=== PATIENT | female | born 1965 | race Caucasian/White ===

== ENCOUNTER → 2016-10-01 | Outpatient (CLI) | payer BC ==
[~2016-10-01] MED LIST: MELO15TA10 PO; METO25TA3 PO; SERT-234 PO; SIMV20TA2 PO
[2016-10-01 13:33] LABS: ALKALINE PHOSPHATASE 81 U/L (45-117); ALT/SGPT 40 U/L (12-78); AST/SGOT 21 U/L (15-37); BLOOD UREA NITROGEN 13 mg/dl (7-18); BUN/CREATININE RATIO 17.4 (10-20); CALCIUM 8.6 mg/dl (8.5-10.1); CARBON DIOXIDE 26 mmol/L (21-32); CHLORIDE 107 mmol/L (98-107); CREATININE 0.75 mg/dl (0.60-1.20); GLUCOSE 96 mg/dl (70-99); HDL CHOLESTEROL 44 mg/dl; POTASSIUM 4.2 mmol/L (3.5-5.1); SODIUM 139 mmol/L (136-145)
[2016-10-01 13:46] LABS: ALB/GLOB RATIO 1.1 (0.9-2); CHOLESTEROL 215 mg/dl (0-200); CHOLESTEROL/HDL RATIO 4.9; LDL CHOLESTEROL CALCULATED 119 mg/dl; TRIGLYCERIDES 260 mg/dl (0-150); VERY LOW DENSITY LIPOPROT CALC 52 mg/dl
== END | disposition home or self-care (01) ==
LOC: C.LABPVFM 08:35
PROVIDERS: ATTEND Family Medicine
DX: I49.3 Ventricular premature depolarization (principal); F32.9 Major depressive disorder, single episode, unspecified; E78.5 Hyperlipidemia, unspecified

== ENCOUNTER → 2017-05-12 | Outpatient (CLI) | payer BC ==
--- NOTE | 2017-05-12 15:17 | MAMMOGRAPHY REPORT ---
BILATERAL DIGITAL SCREENING MAMMOGRAM TOMOSYNTHESIS WITH CAD: 05/12/2017 CLINICAL HISTORY: Routine screening. Patient has no complaints. TECHNIQUE: Breast tomosynthesis in addition to standard 2D mammography was performed. Current study was also evaluated with a Computer Aided Detection (CAD) system. COMPARISON: Comparison is made to exams dated: 02/21/2015 mammogram, 04/02/2016 mammogram, 01/23/2014 mammogram, 11/18/2012 mammogram, 10/26/2011 mammogram, and 08/08/2010 mammogram - [facility] enter. BREAST COMPOSITION: There are scattered areas of fibroglandular density in both breasts. FINDINGS: The parenchymal pattern is unchanged. No developing mass, architectural distortion or clus ter of suspicious microcalcifications is seen in either breast. IMPRESSION: ACR BI-RADS CATEGORY 2: BENIGN There is no mammographic evidence of malignancy. A 1 year screening mammogram is recommended. The pa tient will receive written notification of the results. Approximately 10% of breast cancers are not detected with mammography. A negative mammographic report should not delay biopsy if a clinically suggestive mass is present. Nancy Bolton M.D. ay/:05/12/2017 09:51:34 Internal Controls Manager: Cee SINGH(Jhon)(Oumou), [facility] letter sent: Normal 1/2 BI-RADS Code: ACR BI-RADS Category 2: Benign
== END | disposition home or self-care (01) ==
LOC: C.MAMM 08:37
PROVIDERS: ATTEND Obstetrics & Gynecology
DX: Z12.31 Encounter for screening mammogram for malignant neoplasm of breast (principal)

== ENCOUNTER 2018-08-16 06:22 | Inpatient (IN) ==
--- NOTE | 2018-07-07 10:16 | PAT Medication Instructions ---
Medication Instructions Date of Service July 07, 2018 Home Medications atorvastatin 20 mg PO QAM diclofenac sodium 75 mg PO BID metoprolol succinate 12.5 mg PO QAM sertraline 100 mg PO QAM ASK your surgeon for instructions diclofenac sodium 75 mg PO BID Take morning of surgery With a small sip of water, OTHERWISE NOTHING TO EAT OR DRINK AFTER MIDNIGHT: atorvastatin 20 mg PO QAM metoprolol succinate 12.5 mg PO QAM sertraline 100 mg PO QAM Other Notes If you have any questions please call us at [phone] or [phone] or [phone] or [phone]
--- NOTE | 2018-07-15 14:05 | Anesthesiology Consultation ---
Date of Service July 15, 2018 Assessment & Plan (1) Encounter for pre-operative examination: Chart Review Chart Review: Acceptable Risk for Surgery and Patient seen in Pre Admission Testing Teaching & Discussion Pre-Anesthesia Teaching/Discussion Notes: Instructed NPO after midnight before surgery,except medications with 15 cc of water. Medication instructions provided according to the PAT guidelines. History Surgery Operation Date: 08/16/18 08:50 Proposed Procedures p Right Total Hip Replacement - Loy Negrete MD Height/Weight Height: 5 ft 6.5 in Weight: 100 kg Allergies Allergy/AdvReac Type Severity Reaction Status Date / Time adhesive Allergy Unknown SKIN Verified 07/04/18 11:59 IRRITATION pseudoephedrine AdvReac Unknown PALPITATION Verified 07/15/18 14:15 S Medications Home Medications Medication Instructions Recorded Confirmed Last Taken atorvastatin 20 mg PO QAM 07/04/18 07/04/18 Unknown diclofenac sodium 75 mg PO BID 07/04/18 07/04/18 Unknown metoprolol succinate 12.5 mg PO QAM 07/04/18 07/04/18 Unknown sertraline 100 mg PO QAM 07/04/18 07/04/18 Unknown Past Medical History Medical History Anxiety History of palpitations ON METOPROLOL Hyperlipidemia Obesity Osteoarthritis Sleep apnea CPAP Past Surgical History Surgical History History of cholecystectomy History of tooth extraction WISDOM TEETH History of total abdominal hysterectomy and bilateral salpingo-oophorectomy Hx of colonoscopy Past Anesthesia History No Hx of Anesthesia Complications and No Family Hx of Anesthesia Complications History of PONV No Motion Sickness Screening History of Motion Sickness: No Social History Smoking Status: Former smoker Do You Dip or Chew Tobacco: No Smoking End Date: QUIT SEVERAL YEARS AGO Hx Alcohol Use: No Hx Substance Use: No substance use type: does not use Exercise / Class Metabolic Activity II 4-5 Yardwork/Stairs/Walk up hill Review of Systems History of palpitations- on metoprolol. Patient denies chest pain, shortness of breath, dyspnea on exertion, joint pain, reflux, cough, wheezing, palpitations. Physical Exam Full neck and c-spine range of motion. Full TMJ range of motion. TMD 2.5 finger breaths Mallampati Score 3 Dentition: intact, porcelain tooth on upper right; several crowns on sides/ molars Lungs: clear throughout to auscultation Cardiac: regular rate and rhythm, no murmurs noted Spine: normal Carotid arteries: negative bruit Extremities: no edema Testing Electrocardiogram Date: 07/15/18 NSR at 69bpm. NS STA. Chest X-Ray Date: 07/15/18 Findings: + NAD Laboratory Results 07/15/18 14:28 07/15/18 14:28 Blood Type A Positive 07/15/18 14:28 Antibody Screen NEGATIVE 07/15/18 14:28 PT 10.6 Seconds (9.0-12.0) 07/15/18 14:28 INR 1.1 (0.9-1.1) 07/15/18 14:28 APTT 30.5 Seconds (21.0-31.0) 07/15/18 14:28
--- NOTE | 2018-07-15 14:06 | PAT Medication Instructions ---
Medication Instructions Date of Service July 15, 2018 Home Medications atorvastatin 20 mg PO QAM diclofenac sodium 75 mg PO BID metoprolol succinate 12.5 mg PO QAM sertraline 100 mg PO QAM ASK your surgeon for instructions diclofenac sodium 75 mg PO BID Take morning of surgery With a small sip of water, OTHERWISE NOTHING TO EAT OR DRINK AFTER MIDNIGHT: atorvastatin 20 mg PO QAM metoprolol succinate 12.5 mg PO QAM sertraline 100 mg PO QAM Other Notes If you have any questions please call us at [phone] or [phone] or [phone] or [phone]
--- NOTE | 2018-07-15 15:06 | XRay Report ---
XR chest Pre-admission PA/Lat CLINICAL HISTORY: 52 years-old Female presenting with preoperative assessment. TECHNIQUE: PA and lateral views of the chest were obtained. COMPARISON: None. FINDINGS: Cardiomediastinal silhouette normal. Lungs and pleural spaces clear. Osseous structures normal. Nanda cystectomy clips noted. IMPRESSION: 1. No acute cardiopulmonary disease. Electronically signed by: Tom Pendleton M.D. 07/15/2018 3:05 PM
[2018-07-15 16:14] LABS: Basophils # (auto) 0.04 K/uL (0-0.2); Basophils % (auto) 0.5 %; Eosinophils % (auto) 1.2 %; Hematocrit (blood only) 39.3 % (37-47); Hemoglobin 13.1 g/dL (12.0-16.0); Immature Granulocytes # (auto) 0.01 K/uL (0.00-0.02); Immature Granulocytes % (auto) 0.1 %; Lymphocytes # (auto) 2.87 K/uL (1.2-3.4); Lymphocytes % (auto) 33.3 %; Mean Corpuscular Hgb Conc 33.3 g/dL (32-36); Mean Platelet Volume 12.2 fL (7.4-10.4); Monocytes # (auto) 0.34 K/uL (0.11-0.59); Monocytes % (auto) 3.9 %; Neutrophils # (auto) 5.25 K/uL (1.4-6.5); Platelet Count 241 K/uL (130-400); RDW Coefficient of Variation 12.9 % (11.5-14.5); RDW Standard Deviation 46.1 fL (36.4-46.3); Red Blood Count 4.05 M/uL (4.2-5.4); White Blood Count 8.61 K/uL (4.8-10.8)
[2018-07-15 16:25] LABS: INR 1.1 (0.9-1.1); Partial Thromboplastin Ratio 1.2; Partial Thromboplastin Time 30.5 Seconds (21.0-31.0); Prothrombin Time 10.6 Seconds (9.0-12.0)
[2018-07-15 16:26] LABS: BUN Creatinine Ratio 18.5 (10-20); Calcium 8.3 mg/dl (8.5-10.1); Creatinine Clr Calc Pharmacy 91.1 ml/min; Est GFR (Non-African American) 77.7; Potassium 3.7 mmol/L (3.5-5.1)
--- NOTE | 2018-08-01 08:17 | History and Physical Report ---
DATE OF ADMISSION: 08/16/2018 CHIEF COMPLAINT: Right hip pain. HISTORY OF PRESENT ILLNESS: A 52-year-old female who is referred for surgical treatment of her right hip. She has a several-year history of increasing right hip pain, groin pain. She describes it has gotten worse. It has gotten markedly worse over the past 6 months. She has tried different anti-inflammatories, which help for a short period of time and then kind of run their course and become less effective. She is currently taking diclofenac with pretty minimal relief. She has got chronic pain. It hurts her all the time. The more she walks, the more it hurts. She limps all day long. She would like to have her hip fixed. PAST MEDICAL HISTORY: 1. Elevated cholesterol. 2. Depression. PAST SURGICAL HISTORY: Include: 1. Hysterectomy. 2. Cholecystectomy. ALLERGIES: None. CURRENT MEDICINES: 1. Sertraline. 2. Metoprolol 12.5 mg. 3. Atorvastatin. 4. Diclofenac. SOCIAL HISTORY: A 52-year-old female patient, is . Rare alcohol intake. 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 FAMILY HISTORY: Significant for heart disease, diabetes, melanoma, lung cancer. REVIEW OF SYSTEMS: Negative for diabetes, neurologic problems, vascular problems or bleeding disorders. No chest pain or shortness of breath. No DVT or PE. PHYSICAL EXAMINATION: GENERAL: Reveals a healthy, pleasant middle-aged female. Looks to be in reasonably good health. HEENT: Benign. NECK: Supple. No lymphadenopathy. LUNGS: Clear to auscultation. HEART: Regular rate and rhythm. ABDOMEN: Soft, nontender, nondistended. EXTREMITIES: Grossly neurovascularly intact except as follows: Examination of the right hip and leg reveals patient walks with a significant limp. Leg lengths clinically appear equal. She has significant pain with hip motion. She can internally rotate to -5. Negative straight leg raise. No knee effusion. She is neurologically intact. X-RAYS: X-rays of the right hip were reviewed, show advanced right hip DJD. She has complete loss of her hip joint space with some degree of flattening of the femoral head. She has subchondral sclerosis. It has gotten significantly worse over the past 2 months. ASSESSMENT: A 52-year-old female with advanced right hip degenerative joint disease. She has failed conservative care and would like to have her right hip replaced. PLAN: We will take her to the operating room and do right total hip replacement. The risks and benefits of the procedure were explained to the patient and include but not limited to DVT, PE, , infection, neurological injury, vascular injury, bleeding problem, pain, limited range of motion, stiffness, failure to relieve her symptoms, incomplete relief of symptoms, need for further surgery in the future, fracture, leg length inequality, nerve palsy, etc. The patient understands and desires to proceed. Informed consent was obtained. As far as discharge plans, she is planning to be discharged to home using [facility] home health program. We did talk to her about taking her atenolol/metoprolol on the morning of surgery and holding the diclofenac 10 days preop.
[~2018-08-16 06:22] MED LIST changes: +ACETAMINOPHEN 500 MG TAB PO SCH; +CEFAZOLIN 2000MG 2,000 MG/15 ML SYR IV SCH; +FAMOTIDINE 20 MG TAB PO SCH; +GABAPENTIN 300 MG x 3 PO SCH; +LR 500ML BOLUS, THEN 15ML/HR IV SCH; +LR 60ML/HR IV SCH; -MELO15TA10 PO; -METO25TA3 PO; +METOCLOPRAMIDE HCL 10 MG TABLET PO SCH; +SCOPOLAMINE 1.5 MG TDSY TD SCH; -SERT-234 PO; -SIMV20TA2 PO; +TRANEXAMIC ACID 1,000 MG **IV Pre-op IV SCH
[2018-08-16] MEDS ORDERED: BUPIVACAINE 0.5 % 5 MG/1 ML PF 10ML VIAL ONE (06:37)
--- NOTE | 2018-08-16 06:55 | History & Physical Bridge Note ---
Date of Service August 16, 2018 History & Physical Bridge Note I have examined the patient, reviewed the History & Physical and in the interval since the performance of the History & Physical I have noted the following changes of clinical significance: no changes noted
[2018-08-16] MEDS ORDERED: MoRPHine SULFATE PF 1 MG/ML 10 ML AMP/VIAL ONE (07:45)
[2018-08-16] MEDS ORDERED: MIDAZOLAM HCL 1 MG/ML 2ML VIAL ONE ×2 (07:45→09:53)
[2018-08-16] MEDS ORDERED: PROPOFOL IV EMULSION 10 MG/ML 20 ML VIAL IV ONE (08:50)
[2018-08-16] MEDS ORDERED: LIDOCAINE HCL 2% 2 ML VIAL/AMP(20MG/ML) INFIL ONE (08:50)
[2018-08-16] MEDS ORDERED: BACITRACIN INJ 50,000 UNIT VIAL ONE (09:13)
[2018-08-16] MEDS ORDERED: BUPIVACAINE/EPINEPHRINE 0.5% MPF 1:200,000 30 ML VIAL ONE (09:13)
[2018-08-16] MEDS ORDERED: LACTATED RINGER'S 500 ML IV PRN (09:23)
[2018-08-16] MEDS ORDERED: NALBUPHINE HCL INJ 10 MG/ML AMP IV PRN (09:23)
[2018-08-16] MEDS ORDERED: MoRPHine SULFATE 2 MG/ML CARP IV PRN (09:23)
[2018-08-16] MEDS ORDERED: NALOXONE HCL 0.08 MG in SYRINGE 1.8 ML IV PRN (09:23)
[2018-08-16] MEDS ORDERED: NALOXONE HCL 1 MG in SODIUM CHLORIDE 0.9% 1000ML 1,000 ML IV PRN (09:23)
[2018-08-16] MEDS ORDERED: NALOXONE HCL 0.4 MG/1 ML VIAL/CARP IV PRN ×2 (09:23→11:58)
[2018-08-16] MEDS ORDERED: ONDANSETRON INJ 2 MG/ML 2 ML VIAL IV PRN (09:23)
[2018-08-16] MEDS ORDERED: MoRPHine SULFATE PF 1 MG/ML 10 ML AMP/VIAL INT SPINAL ONE (09:23)
[2018-08-16] MEDS ORDERED: MEPERIDINE HCL 25 MG/ML CARP IV PRN (09:23)
[2018-08-16] MEDS ORDERED: NO NARCOTICS OR SEDATIVES SCH (09:30)
[2018-08-16] MEDS ORDERED: SODIUM CHLORIDE 0.9% 1000ML 1,000 ML IV SCH (09:30)
[2018-08-16] MEDS ORDERED: DC INTRASPINAL MORPHINE SCH (09:30)
--- NOTE | 2018-08-16 10:59 | Post Operative Brief Note ---
Immediate Post Op Note v1 Date of Surgery August 16, 2018 Pre & Post Diagnosis Operation Date: 08/16/18 08:50 Pre-Op Diagnosis: Right Hip Advanced Degenerative Joint Disease Post-Op Diagnosis: Right Hip Advanced Degenerative Joint Disease Procedure Operation Date: 08/16/18 08:50 Actual Procedures p Right Total Hip Arthroplasty--Uncemented(Right) - Loy Negrete MD Surgeon Loy Negrete MD Camp Attendant Bin, PAC Estimated Blood Loss 300 Findings Consistent with Post-Op Diagnosis Fluids 1300 cc Specimens Right Femoral Head Drains Gordon Catheter (A 16 Azeri gordon catheter was inserted by KACIE Head, without difficulty, clear yellow urine obtained, output to be monitored by Anesthesia.) Anesthesia Type Spinal MAC Complications none Disposition Accompanied Patient To Recovery: Yes Disposition: Recovery Room
--- NOTE | 2018-08-16 11:56 | XRay Report ---
XR hip 1V RT w pelvis CLINICAL HISTORY: IN PACU - A/P PELVIS and LATERAL HIP COMPARISON: Right hip radiographs August 28, 2015. FINDINGS: Alignment of the total right hip arthroplasty is anatomic. There is no fracture or unexpec maria fernanda radiopaque foreign body. Skin shelli and acetabular screws are noted. IMPRESSION: Expected findings following total right hip arthroplasty. Electronically signed by: Segundo Echevarria M.D. 08/16/2018 11:54 AM
[2018-08-16] MEDS ORDERED: BISACODYL 10 MG SUPP PR PRN (11:58)
[2018-08-16] MEDS ORDERED: MAGNESIUM HYDROXIDE SUSP 30 ML UDC PO PRN (11:58)
[2018-08-16] MEDS ORDERED: ALUMINUM/MAGNESIUM SUSP 30 ML UDC PO PRN (11:58)
--- NOTE | 2018-08-16 11:58 | Anesthesiology Progress Note ---
Date of Service August 16, 2018 Anesthesia Post Procedure Vital Signs Vital Signs: Temp Pulse Pulse Resp BP Pulse Ox 08/16/18 11:35 36.5 C 58 L 16 106/63 95 08/16/18 11:25 56 L 17 116/40 L 98 08/16/18 11:15 68 16 91/44 L 98 08/16/18 11:05 66 17 101/56 L 98 08/16/18 10:59 36.9 C 61 16 109/60 95 08/16/18 06:55 36.8 C 52 L 20 131/83 95 Pain Intensity Right Hip: Pain Intensity: 0 Notes Mental Status: alert / awake / arousable Patient Amnestic to Procedure: Yes Nausea / Vomiting: adequately controlled Pain: adequately controlled Airway Patency, RR, SpO2: stable & adequate BP & HR: stable & adequate Hydration State: stable & adequate Neuraxial Anesthesia: was administered and sensory block is resolving Anesthetic Complications: no major complications apparent and Pt Satisfied with anesthetic care
[2018-08-16] MEDS: ACETAMINOPHEN 500 MG TAB PO SCH ×2 (13:45→20:46)
[2018-08-16] MEDS: SODIUM CHLORIDE 0.9% 1000ML 1,000 ML IV SCH ×2 (13:45→23:14)
[2018-08-16] MEDS: DiphenhydrAMINE HCL 50 MG/ML VIAL IV PRN ×2 (13:48→20:46)
[2018-08-16] MEDS: CHECK SCOPOLAMINE PATCH PLACEMENT SCH ×2 (14:58→23:15)
[2018-08-16] MEDS ORDERED: TRANEXAMIC ACID 1,000 MG in 0.9 % SODIUM CHLORIDE 100 ML IV SCH (17:00)
[2018-08-16] MEDS: FERROUS GLUCONATE 324 MG TAB PO SCH (18:10)
[2018-08-16] MEDS: ASCORBIC ACID 500 MG TAB PO SCH (18:10)
[2018-08-16] MEDS: CEFAZOLIN 2000MG 2,000 MG/15 ML SYR IV SCH (18:43)
[2018-08-16] MEDS: ASPIRIN 81 MG ECTAB PO SCH (20:00)
[2018-08-16] MEDS: DOCUSATE SODIUM 100 MG CAP PO SCH (20:00)
[2018-08-16] MEDS ORDERED: SENNA 8.6 MG TAB PO SCH (21:00)
--- NOTE | 2018-08-17 01:32 | Operative Report ---
DATE OF OPERATION: 08/16/2018 SURGEON: Loy Negrete MD COMMISSIONS SPECIALIST: KACIE Hall PREOPERATIVE DIAGNOSIS: Right hip degenerative joint disease. POSTOPERATIVE DIAGNOSIS: Right hip degenerative joint disease. PROCEDURE PERFORMED: Right uncemented ceramic on highly cross-linked polyethylene total hip arthroplasty. COMPLICATIONS: None. ESTIMATED BLOOD LOSS: 300 mL. REPLACEMENT FLUID REPLACEMENT: 1300 mL of crystalloid fluid replacement. ANESTHESIA: Spinal. DRAINS: None. SPECIMENS: Left femoral head sent for pathology. OPERATIVE INDICATIONS: The patient is a 52-year-old female who has had a several-year history of increasing right hip pain and discomfort, describes it has just gotten worse over time. It has got significantly worse over the past 6 months. She has failed conservative treatment. X-rays show advanced right hip DJD with significant progression over the past year. She elected to proceed with total hip arthroplasty. OPERATIVE IMPLANTS: Operative implants consisted of: 1. A Biomet G7 size 54 mm acetabular shell. 2. An apex hole eliminator. 3. 6.5 cancellous acetabular screws, 1 at 35 mm in length and 1 at 25 mm in length. 4. A highly cross-linked polyethylene liner with 54 mm outer diameter and 36 mm inner diameter. 5. DePuy Corail size 12 KLA femoral stem. 6. A +5/36 mm ceramic articular ball. OPERATIVE PROCEDURE: The patient was taken to the operating room, identified and placed on the operating table in the supine position. All contact areas were appropriately padded. IV antibiotics were provided by anesthesia team. A spinal anesthetic had been implemented in the holding area. Araujo catheter was placed in sterile fashion. The patient was then placed in the left lateral decubitus position. An axillary roll was placed. [facility] for [facility]. Right hip and leg were then prepped and draped in usual sterile fashion. Posterolateral approach to the right hip was then performed through curvilinear incision centered over the greater trochanter. Sharp dissection was carried through subcutaneous tissue down to the level of the IT band and gluteal fascia. The IT band and gluteal fascia were incised longitudinally in line with skin incision. The underlying greater trochanteric bursa was excised. The piriformis and external rotators were tagged and taken off the posterior aspect of the hip joint capsule. Great care was taken throughout the procedure to protect the sciatic nerve at all times. Posterior capsulotomy was then performed leaving a large flap for later repair. Hip was internally rotated and dislocated. Femoral neck osteotomy cut was made with the final cut 12 mm above the lesser trochanter. Femoral head was removed and sent for pathology. The femur was retracted anteriorly. Attention was then drawn to the acetabulum. The acetabular labrum was excised. The pulvinar fat was excised. Sequential reaming of the acetabulum was then performed beginning with a size 43 and progressing up to 53. A 54 mm Biomet G7 acetabular shell was then placed in about 40 degrees of lateral opening and 20 degrees of anteversion. It was fixed with two 6.5 cancellous acetabular screws. Anterior osteophyte was removed. A trial liner was placed. Attention was then drawn to the femur. The proximal femur was entered with a cookie cutter followed by canal finder. I then broached beginning with a size 8 and progressing up to 12. We got good fit at 12. I then trialed the hip and the +5 articular ball provided full stability and full extension and external rotation and flexion to 90 degrees, internal rotation to 60 degrees. The soft tissue tension seemed still a little bit lax, but I did not want to make her any longer. The hip appeared stable. We elected to place these implants. All trial implants were removed. An apex hole eliminator was placed. Highly cross-linked polyethylene liner was placed. A DePuy Corail size 12 KLA femoral stem was impacted in position. A +5/36 mm ceramic articular ball was placed. Hip was located and once again found to be stable. Attention was then drawn toward closing. The wound was irrigated with copious amounts of pulsatile lavage solution. I did inject locally with 60 mL of 0.5% Marcaine with epinephrine. The patient did receive 1 gram of tranexamic acid preoperatively. The posterior capsule and external rotators were then repaired through drill holes in the posterior trochanter with #2 Ti-Cron suture. The IT band and gluteal fascia were then closed with #1 PDS suture in running fashion. The subcutaneous tissues were then closed with 2 layers, the deep layer #2 Vicryl suture and subcutaneous tissues with 2-0 Dexon suture in a buried interrupted fashion. Skin was then closed with skin shelli. Leg was then cleaned and dried and a sterile dressing of Xeroform, 4 x 4, sterile ABD pad and foam tape was applied. The patient then transferred to the recovery room in stable condition. The patient tolerated the procedure well with no complication. All needle and sponge counts were correct at the end of the operation. I attest to the content of the Intraoperative Record and any orders documented therein. Any exception s are noted below.
[2018-08-17] MEDS: CEFAZOLIN 2000MG 2,000 MG/15 ML SYR IV SCH (02:18)
[2018-08-17] MEDS ORDERED: ONDANSETRON INJ 2 MG/ML 2 ML VIAL IV PRN (03:23)
[2018-08-17] MEDS ORDERED: HYDROmorphone INJ 0.5 MG/0.5 ML SYR IV PRN (03:23)
[2018-08-17] MEDS ORDERED: METOCLOPRAMIDE HCL INJ 5 MG/ML 2 ML VIAL IV PRN (03:23)
[2018-08-17] MEDS: ACETAMINOPHEN 500 MG TAB PO SCH ×2 (05:41→13:07)
[2018-08-17] MEDS: KETOROLAC 30 MG/ML VIAL IV SCH ×2 (05:41→11:35)
[2018-08-17 07:58] LABS: Basophils # (auto) 0.02 K/uL (0-0.2); Basophils % (auto) 0.2 %; Eosinophils # (auto) 0.08 K/uL (0-0.5); Eosinophils % (auto) 0.9 %; Hemoglobin 12.1 g/dL (12.0-16.0); Immature Granulocytes # (auto) 0.02 K/uL (0.00-0.02); Immature Granulocytes % (auto) 0.2 %; Lymphocytes # (auto) 1.06 K/uL (1.2-3.4); Lymphocytes % (auto) 11.9 %; Mean Corpuscular Hgb Conc 33.6 g/dL (32-36); Mean Corpuscular Volume 97.6 fL (80-100); Monocytes # (auto) 0.68 K/uL (0.11-0.59); Monocytes % (auto) 7.6 %; Neutrophils # (auto) 7.08 K/uL (1.4-6.5); Neutrophils % (auto) 79.2 %; Platelet Count 171 K/uL (130-400); RDW Coefficient of Variation 12.9 % (11.5-14.5); Red Blood Count 3.69 M/uL (4.2-5.4); White Blood Count 8.94 K/uL (4.8-10.8)
--- NOTE | 2018-08-17 08:00 | Anesthesiology Progress Note ---
Date of Service August 17, 2018 Anesthesia Post Procedure Vital Signs Vital Signs: Temp Pulse Pulse Resp BP Pulse Ox Pulse Ox 08/17/18 06:49 37.5 C 58 L 18 97/66 L 94 08/17/18 04:00 36.6 C 67 22 122/74 94 08/17/18 02:18 16 93 08/17/18 01:20 14 92 08/17/18 00:14 16 92 08/16/18 23:53 36.8 C 68 20 98/59 L 91 08/16/18 23:15 14 92 08/16/18 22:06 14 92 08/16/18 21:10 16 95 08/16/18 20:03 18 94 08/16/18 19:31 37.7 C H 66 16 107/60 93 08/16/18 18:14 18 94 08/16/18 17:00 16 94 08/16/18 16:00 12 94 08/16/18 15:00 14 93 08/16/18 14:59 37.3 C 56 L 14 106/57 L 93 08/16/18 14:00 54 L 15 108/83 97 08/16/18 13:00 16 94 08/16/18 12:59 54 L 18 106/62 94 08/16/18 12:23 57 L 16 125/81 97 08/16/18 12:00 15 91 91 08/16/18 11:59 36.4 C L 32 L 65 12 124/70 91 08/16/18 11:35 36.5 C 58 L 16 106/63 95 08/16/18 11:25 56 L 17 116/40 L 98 08/16/18 11:15 68 16 91/44 L 98 08/16/18 11:05 66 17 101/56 L 98 08/16/18 10:59 36.9 C 61 16 109/60 95 Pain Intensity Right Hip: Pain Intensity: 1 Notes Mental Status: alert / awake / arousable and participated in evaluation Patient Amnestic to Procedure: Yes Nausea / Vomiting: adequately controlled Pain: adequately controlled Airway Patency, RR, SpO2: stable & adequate BP & HR: stable & adequate Hydration State: stable & adequate Neuraxial Anesthesia: was administered and sensory block resolved Anesthetic Complications: no major complications apparent
[2018-08-17 08:33] LABS: BUN Creatinine Ratio 12.6 (10-20); Calcium 7.9 mg/dl (8.5-10.1); Creatinine Clr Calc Pharmacy 106.2 ml/min; Est GFR (Non-African American) 94.9; Potassium 3.6 mmol/L (3.5-5.1)
[2018-08-17] MEDS: DOCUSATE SODIUM 100 MG CAP PO SCH (08:33)
[2018-08-17] MEDS: FERROUS GLUCONATE 324 MG TAB PO SCH (08:33)
[2018-08-17] MEDS: ASCORBIC ACID 500 MG TAB PO SCH (08:33)
[2018-08-17] MEDS: CHECK SCOPOLAMINE PATCH PLACEMENT SCH (08:33)
[2018-08-17] MEDS: ASPIRIN 81 MG ECTAB PO SCH (08:34)
[2018-08-17] MEDS ORDERED: SERTRALINE HCL 100 MG TABLET PO SCH (09:00)
[2018-08-17] MEDS ORDERED: ATORVASTATIN 20 MG TAB PO SCH (09:00)
[2018-08-17] MEDS ORDERED: METOPROLOL SUCC 25MG EXT REL TAB PO SCH (09:00)
[2018-08-17] MEDS ORDERED: MULTIVITAMIN TAB PO SCH (09:00)
[2018-08-17] MEDS: TRAMADOL HCL 50 MG TABLET PO PRN ×2 (10:45→14:27)
--- NOTE | 2018-08-17 11:05 | Progress Note ---
DATE: 08/17/2018 SUBJECTIVE: A 52-year-old white female postop day 1 from right hip replacement. She is doing well. Some pain, but very controlled. No chest pain or shortness of breath. Not feeling dizzy or lightheaded. She really would like to go home. OBJECTIVE: VITAL SIGNS: Temperature 37.5. Vital signs stable. GENERAL: Physical examination reveals a pleasant, middle-aged female. She is sitting up in her bed and looks comfortable. LUNGS: Clear to auscultation. HEART: Regular rate and rhythm. ABDOMEN: Soft, nontender, nondistended. EXTREMITIES: Grossly neurovascularly intact except as follows: Examination of the right leg reveals the leg lengths to be equal. Her dressing is clean, dry and intact. Thigh is soft and supple. Hip is located. She is neurologically intact. LABORATORY DATA: Hemoglobin 12.1. Hematocrit 36.0. Electrolytes are stable. ASSESSMENT: A 52-year-old white female postop day 1 from right hip replacement, doing well. Pain is controlled. Hip is located. She is neurologically intact. PLAN: 1. DVT prophylaxis including thigh-high TEDs, SCDs, and aspirin twice a day. 2. PT/OT. Weight bear as tolerated. Right total hip protocol. 3. Pain control, doing well with current pain regimen. 4. Disposition: Plan to discharge to home with some home health likely later today.
--- NOTE | 2018-08-18 06:34 | Discharge Summary ---
Date of Service August 24, 2018 Discharge Data Consultations 08/17/18 08:00 Consult Case Management - Discharge Planning Routine Procedures Performed Operation Date: 08/16/18 08:50 Actual Procedures p Right Total Hip Arthroplasty--Uncemented(Right) - Loy Negrete MD
--- NOTE | 2018-08-23 15:45 | Discharge Summary ---
ADMITTING PHYSICIAN AND SURGEON: Dr. Loy Negrete. ADMITTING DIAGNOSIS: Right hip degenerative joint disease. SURGERY PERFORMED: Right total hip arthroplasty. SECONDARY DIAGNOSES: Elevated cholesterol, depression. CONSULTS: None obtained. HISTORY AND PHYSICAL EXAMINATION: Well documented in the patient's chart. HOSPITAL COURSE: The patient was admitted on 08/16/2018 and underwent total hip arthroplasty, tolerated the procedure well. There were no complications. She was transferred to the PACU postoperatively and later to the orthopedic floor for further care. She was given Ancef for antibiotic prophylaxis, ALEJANDRA stockings, SCDs and aspirin for DVT prophylaxis. Hemoglobin, hematocrit and vital signs were monitored during hospital stay and remained stable. She did not require any blood transfusions. There were no complications. By postoperative day 1, she was tolerating a regular diet, pain was controlled with oral pain medicine. She was participating in physical therapy. Postop day #1, she was discharged home, set up with home health services. She was given printed discharge instructions including new prescriptions for Tylenol, aspirin and tramadol. Continue her home medications, continue physical therapy, ALEAJNDRA stockings, total hip precautions. She is weightbearing as tolerated. Follow up approximately 2 weeks postoperatively or sooner if there are any problems or concerns.
== END 2018-08-17 14:56 | disposition home health service (06) | DRG 470 ==
LOC: ASU 06:22 → 3E 11:03